=== PATIENT | male | born 1935 | race Caucasian/White ===

== ENCOUNTER 2018-02-09 21:33 | Observation (INO) ==
[2018-02-10] MEDS ORDERED: Acetaminophen 325 MG Tablet PO PRN (02:51)
[2018-02-10] MEDS ORDERED: Bisacodyl 10 MG Supp RECTAL PRN (02:51)
[2018-02-10] MEDS: Sod Chloride 0.9% Inj 1,000 ML IV.CONT SCH ×2 (06:48→07:25)
[2018-02-10] MEDS: Heparin - SQ 10,000 UNITS/ML Vial SQ SCH ×3 (07:10→21:16)
[2018-02-10 09:07] LABS: Baso # (Auto) 0.1 th/mm3 (0.0-0.2); Baso % (Auto) 0.6 % (0.0-2.0); Eos % (Auto) 0.1 % (0.0-4.0); Hematocrit 45.5 % (39.0-51.0); Lymph # (Auto) 1.1 th/mm3 (1.0-4.8); Lymph % (Auto) 12.2 % (9.0-44.0); Mean Corpuscular Hemoglobin 29.8 pg (27.0-34.0); Mean Corpuscular Volume 90.3 fL (80.0-100.0); Mean Platelet Volume 10.3 fL (7.0-11.0); Mono # (Auto) 0.4 th/mm3 (0.0-0.9); Mono % (Auto) 4.6 % (0.0-8.0); Neut # (Auto) 7.3 th/mm3 (1.8-7.7); Neut % (Auto) 82.5 % (16.0-70.0); Platelet Count 213 th/mm3 (150-450); Red Blood Count 5.04 mil/mm3 (4.50-5.90); Red Cell Distribution Width 13.2 % (11.6-17.2); White Blood Count 8.9 th/mm3 (4.0-11.0)
[2018-02-10 09:14] LABS: Calcium 8.9 mg/dL (8.5-10.1)
[2018-02-10 09:15] LABS: Carbon Dioxide 26.8 meq/L (21.0-32.0)
[2018-02-10] MEDS ORDERED: LISINOPRIL HYDROCHLOROTHIAZIDE PO SCH (12:00)
--- NOTE | 2018-02-10 12:42 | P.HPIM ---
History of Present Illness Primary Care Physician: UNKNOWN Chief Complaint: Dizziness and headache History of Present Illness: This patient is a 82-year-old gentleman with hypertension who has stopped taking his medications because he "felt better ". His blood pressure on arrival in the emergency room. Patient had a headache and was dizzy. Not have shortness of breath or chest pain. Patient reports his 3 years ago when he stopped caring for himself. In fact he went to move in with his son and they brought in his medications which were last filled about 3 years ago. 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 Again feeling more dizzy. The son who is at the bedside says that he was not drinking fluids and they were very concerned about him enough to come to the hospital. He appears to have abnormal urinalysis in the emergency room yesterday and was started on empiric Rocephin for urinary tract infection. He reports urinary frequency and minimal dysuria. Otherwise chest x-ray on my review shows no acute cardiopulmonary disease. Patient blood pressure somewhat improved after hydrochlorothiazide lisinopril. His headache which was moderate is improved after improvement in blood pressure medicine. Patient recommended for observation due to uncontrolled blood pressure secondary nonadherence - Diagnosis (1) CKD (chronic kidney disease) (2) Acute UTI (3) Hypertension Review of Systems All other systems reviewed negative except as stated in HPI PMFSH - History History Provided By: Patient - Medical History Medical History: Medical History (Last Reviewed 02/10/18 @ 12:37 by Kesha Moseley MD) Melanoma - Surgical History Surgical History: Surgical History (Last Updated 02/10/18 @ 12:37 by Kesha Moseley MD) History of skin surgery - Tobacco History Second Hand Smoke Exposure: No Smoking Status: Never smoker - Alcohol History How Often Do You Have a Drink Containing Alcohol: 2 to 4 times a month - Substance Use History Substance History: No History of Abuse Medications and Allergies Active Medications: Active Medications Acetaminophen (Tylenol) 650 mg PO Q4H PRN PRN Reason: Temp > 100.4 Al Hydroxide/Mg Hydroxide (Milk Of Magnesia Liq) 30 ml PO Q12H PRN PRN Reason: Mild Constipation Bisacodyl (Dulcolax Supp) 10 mg RECTAL DAILY PRN PRN Reason: SEVERE CONSITIPATION Heparin Sodium (Porcine) (Heparin Inj) 5,000 units SQ Q8HR [facility] Last Admin: 02/10/18 07:10 Dose: 5,000 units Hydrochlorothiazide (Hydrodiuril) 12.5 mg PO DAILY [facility] Sodium Chloride (Ns Inj) 1,000 mls @ 75 mls/hr IV.CONT .[id number] [facility] Last Admin: 02/10/18 07:25 Dose: 75 mls/hr Ceftriaxone Sodium 1,000 mg/ (Sodium Chloride) 100 mls @ 200 mls/hr IV.SIG DAILY@0400 [facility] Last Admin: 02/10/18 06:48 Dose: Not Given Lactulose (Lactulose Liq) 30 ml PO DAILY PRN PRN Reason: SEVERE CONSITIPATION Lisinopril (Prinivil) 10 mg PO DAILY [facility] Ondansetron HCl (Zofran Inj) 4 mg IV.PUSH Q6H PRN PRN Reason: NAUSEA OR VOMITING Sennosides (Senokot) 17.2 mg PO Q12H PRN PRN Reason: Moderate Constipation Allergies Allergy/AdvReac Type Severity Reaction Status Date / Time No Known Allergies Allergy Verified 02/09/18 21:50 Home Medications Medication Instructions Recorded Confirmed Type meclizine 12.5 mg PO Q8H PRN 02/10/18 02/10/18 History Exam Vital signs: Vital Signs 02/10/18 04:00 02/10/18 08:00 02/10/18 12:00 Temperature 96.9 F L 98 F 97.8 F Pulse Rate 67 76 63 Respiratory Rate 20 20 20 Blood Pressure 176/86 H 175/90 H 175/79 H Pulse Oximetry 97 98 97 Intake & Output 02/09/18 02/10/18 02/10/18 18:59 06:59 18:59 Intake Total 0 / 0 Balance 0 / 0 Weight 76.7 kg 76.6 kg Intake: Oral 0 / 0 Other: # Voids 2 1 Weight On Admission 76.6 kg Narrative: GENERAL: Patient calm resting and without complaints SKIN: Warm and dry. No rashes or ecchymotic injuries EYES: Pupils equal and round. No scleral icterus. No injection or drainage. ENT: External ear exam normal. No acute nasal bleeding or discharge. Mucous membranes pink and moist. CARDIOVASCULAR: Regular rate and rhythm. No murmurs gallops or rubs appreciated RESPIRATORY: Good air flow and effort without accessory muscle use. Clear to auscultation. Breath sounds equal bilaterally. GASTROINTESTINAL: Abdomen soft, non-tender, nondistended. Hepatic and splenic margins not palpable. MUSCULOSKELETAL: Extremities without clubbing, cyanosis, or edema. No obvious deformities. NEUROLOGICAL: Awake and alert. No obvious cranial nerve deficits. Motor grossly within normal limits. Five out of 5 muscle strength in the arms and legs. Normal speech. Results - Labs CBC & Chem 7: 02/10/18 08:50 02/10/18 08:50 Labs: Short CBC 02/10/18 Range/Units 08:50 WBC 8.9 (4.0-11.0) th/mm3 Hgb 15.0 (13.0-17.0) gm/dL Hct 45.5 (39.0-51.0) % Plt Count 213 (150-450) th/mm3 BMP 02/10/18 08:50 Sodium 139 Potassium 4.0 Chloride 105 Carbon Dioxide 26.8 BUN 17 Creatinine 1.30 Calcium 8.9 Cardiac Enzymes 02/10/18 Range/Units 08:50 Troponin I Less than 0.02 L (0.02-0.05) ng/mL Urine cultures from outside facility are pending Abnormal UA Caprini VTE Risk Assessment Caprini VTE Risk Assessment: Moderate/High Risk (score >= 2) Caprini Risk Assessment Model: Point Value = 1 Point Value = 2 Point Value = 3 Point Value = 5 Age 41-60 Minor surgery BMI > 25 kg/m2 Swollen legs Varicose veins or History of unexplained or recurrent spontaneous Oral contraceptives or hormone replacement Sepsis (< 1 month) Serious lung disease, including pneumonia (< 1 month) Abnormal pulmonary function Acute myocardial infarction Congestive heart failure (< 1 month) History of inflammatory bowel disease Medical patient at bed rest Age 61-74 Arthroscopic surgery Major open surgery (> 45 min) Laparoscopic surgery (> 45 min) Malignancy Confined to bed (> 72 hours) Immobilizing plaster cast Central venous access Age >= 75 History of VTE Family history of VTE Factor V Leiden Prothrombin [id number] Lupus anticoagulant Anticardiolipin antibodies Elevated serum homocysteine Heparin-induced thrombocytopenia Other congenital or acquired thrombophilia Stroke (< 1 month) Elective arthroplasty Hip, pelvis, or leg fracture Acute spinal cord injury (< 1 month) Prophylaxis Regimen: Total Risk Factor Score Risk Level Prophylaxis Regimen 0-1 Low Early ambulation 2 Moderate Order ONE of the following: *Sequential Compression Device (SCD) *Heparin 5000 units SQ BID 3-4 Higher Order ONE of the following medications: *Heparin 5000 units SQ TID *Enoxaparin/Lovenox 40 mg SQ daily (WT < 150 kg, CrCl > 30 mL/min) *Enoxaparin/Lovenox 30 mg SQ daily (WT < 150 kg, CrCl > 10-29 mL/min) *Enoxaparin/Lovenox 30 mg SQ BID (WT < 150 kg, CrCl > 30 mL/min) AND/OR *Sequential Compression Device (SCD) 5 or more Highest Order ONE of the following medications: *Heparin 5000 units SQ TID (Preferred with Epidurals) *Enoxaparin/Lovenox 40 mg SQ daily (WT < 150 kg, CrCl > 30 mL/min) *Enoxaparin/Lovenox 30 mg SQ daily (WT < 150 kg, CrCl > 10-29 mL/min) *Enoxaparin/Lovenox 30 mg SQ BID (WT < 150 kg, CrCl > 30 mL/min) AND *Sequential Compression Device (SCD) Assessment and Plan - Assessment (1) CKD (chronic kidney disease) Code(s): N18.9 - Chronic kidney disease, unspecified Status: Acute Plan: Stable per patient Likely due to uncontrolled hypertension. Avoid nephrotoxic injury (2) Acute UTI Code(s): N39.0 - Urinary tract infection, site not specified Status: Acute Plan: Continue Rocephin for now and follow-up cultures (3) Hypertension Code(s): I10 - Essential (primary) hypertension Status: Acute Plan: Continue lisinopril and hydrochlorothiazide - Plan Discharge Planning: Discharge home Activity unrestricted Diet heart healthy Prescriptions from home refilled Patient follow-up with his primary care doctor 7 days H&P: Quality - VTE Deep Vein Thrombosis/Pulmonary Embolism Present on Admission: No
[2018-02-10] MEDS: hydroCHLOROthiazide 25 MG Tablet PO SCH (13:13)
[2018-02-10] MEDS: Lisinopril 10 MG Tablet PO SCH (13:14)
[2018-02-10] MEDS: amLODIPine 5 MG Tablet PO SCH (15:26)
[2018-02-11] MEDS: Heparin - SQ 10,000 UNITS/ML Vial SQ SCH (06:09)
[2018-02-11] MEDS: hydroCHLOROthiazide 25 MG Tablet PO SCH ×2 (07:14→08:12)
[2018-02-11] MEDS: Lisinopril 10 MG Tablet PO SCH ×2 (07:15→08:13)
[2018-02-11] MEDS: amLODIPine 5 MG Tablet PO SCH ×2 (07:15→08:13)
--- NOTE | 2018-02-11 10:11 | P.PNIM ---
Subjective Interval history: Patient seen and evaluated today in follow-up for uncontrolled hypertension secondary to nonadherence. Blood pressure improved. Urine cultures show less than 10,000 CFU's Physical Exam Vital signs: Vital Signs 02/10/18 12:00 02/10/18 15:03 02/10/18 17:41 Temperature 97.8 F 97.8 F Pulse Rate 63 61 Respiratory Rate 20 20 Blood Pressure 175/79 H 189/92 H 172/84 H Pulse Oximetry 97 99 02/10/18 20:00 02/11/18 00:00 02/11/18 04:00 Temperature 99.2 F 98.5 F 97.7 F Pulse Rate 61 67 63 Respiratory Rate 18 18 18 Blood Pressure 173/83 H 158/80 H 142/80 H Pulse Oximetry 96 94 L 95 02/11/18 08:00 02/11/18 10:03 Temperature 98.3 F Pulse Rate 72 Respiratory Rate 20 Blood Pressure 180/88 H 127/72 Pulse Oximetry 95 Intake & Output 02/10/18 02/11/18 02/11/18 18:59 06:59 18:59 Intake Total 830 / 830 240 / 240 100 / 100 Balance 830 / 830 240 / 240 100 / 100 Weight 76.6 kg 75.3 kg Intake: IV 500 / 500 100 / 100 NS Inj 1,000 ML @ 75 mls/hr IV. 500 / 500 CONT .[id number] [facility] Rx#: [id number] Rocephin Inj 1,000 MG In NS Inj 100 / 100 100 ML @ 200 mls/hr IV.SIG DAILY@0400 [facility] Rx#:[id number] Oral 330 / 330 240 / 240 Other: # Voids 2 3 Weight On Admission 76.6 kg Narrative: GENERAL: SKIN: Warm and dry. HEAD: Atraumatic. Normocephalic. EYES: Pupils equal and round. No scleral icterus. No injection or drainage. ENT: No nasal bleeding or discharge. Mucous membranes pink and moist. NECK: Trachea midline. No JVD. CARDIOVASCULAR: Regular rate and rhythm. RESPIRATORY: No accessory muscle use. Clear to auscultation. Breath sounds equal bilaterally. GASTROINTESTINAL: Abdomen soft, non-tender, nondistended. Hepatic and splenic margins not palpable. MUSCULOSKELETAL: Extremities without clubbing, cyanosis, or edema. No obvious deformities. NEUROLOGICAL: Awake and alert. No obvious cranial nerve deficits. Motor grossly within normal limits. Five out of 5 muscle strength in the arms and legs. Normal speech. PSYCHIATRIC: Appropriate mood and affect; insight and judgment normal. Results - Labs CBC & Chem 7: 02/10/18 08:50 02/10/18 08:50 Assessment and Plan - Assessment (1) CKD (chronic kidney disease) Code(s): N18.9 - Chronic kidney disease, unspecified Status: Acute Plan: Improved Continue home medications - Plan Discharge Planning: Discharge home Activity unrestricted Diet heart healthy Prescriptions from home refilled Patient follow-up with his primary care doctor 7 days
== END 2018-02-11 11:19 | disposition home or self-care (01) ==
LOC: PHEDDLT 21:33 → PH3 21:33
PROVIDERS: ADMIT Hospitalist; ATTEND Hospitalist